=== PATIENT | male | born 2000 | race Caucasian/White ===

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

== ENCOUNTER 2024-03-18 14:04 | Emergency (ER) | payer BC, SELFPAY ==
[2024-03-18 14:04] VITALS: BP 132/92; PULSE 111; RESP 13; TEMP 36.7; O2SAT 100; BMI 21.1
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
--- NOTE | 2024-03-18 14:07 | XR_ITS ---
PROCEDURE INFORMATION: Exam: XR Left Femur Exam date and time: 03/18/2024 2:14 PM Age: 24 years old Clinical indication: Injury or trauma; Other: Chainsaw injury; Laceration; Thigh or upper leg; Left; With foreign body TECHNIQUE: Imaging protocol: Radiologic exam of the left femur. Views: 2 views. Total images: 2 COMPARISON: No relevant prior studies available. FINDINGS: Bones/joints: No evidence of acute fracture. No evidence of acute dislocation. Soft tissues: Soft tissue disruption noted along the distal aspect of the lower thigh. No evidence of radiopaque foreign bodies. IMPRESSION: 1. Soft tissue disruption noted along the distal aspect of the lower thigh. No evidence of radiopaque foreign bodies. 2. No evidence of acute fracture. 3. No evidence of acute dislocation.
[2024-03-18] MEDS: CEFAZOLIN SODIUM 2 GM in 0.9 % SODIUM CHLORIDE 100 ML IV (14:27)
--- NOTE | 2024-03-18 14:33 | PC.NURSE ---
calling [facility] AT THIS TIME.
--- NOTE | 2024-03-18 14:37 | PC.NURSE ---
dON O/P WITH [facility] AT THIS TIME.
[2024-03-18] MEDS: TET/DIPHTH/PERT-ADULT 0.5ML SYRINGE 0.5 ML IM (14:43)
[2024-03-18 14:45] VITALS: BP 132/92; PULSE 103; RESP 16; TEMP 36.9; O2SAT 100
[2024-03-18 16:52] LABS: HIV (1&2) Antibody Rapid NONREACTIVE (NONREACTIVE)
[2024-03-20 05:10] LABS: HCV Ab Non Reactive (Non Reactive)
== END 2024-03-18 15:08 | disposition short-term general hospital (02) ==
PROVIDERS: Emergency Provider Student in an Organized Health Care Education/Training Program
DX: S71.112A Laceration without foreign body, left thigh, initial encounter (principal); W29.3XXA Contact with powered garden and outdoor hand tools and machinery, initial encounter; Z23 Encounter for immunization
CPT/HCPCS: 73552; 86803; 87389; 90471; 90715; 96365; 99285; J0690